=== PATIENT | male | born 1955 | race Caucasian/White ===

== ENCOUNTER → 2021-07-24 08:44 | Outpatient (BNVA) | payer OTHER, SELFPAY | PROVIDERS: Family Provider Family Medicine; PCP Family Medicine; Referring Provider Nurse Practitioner; Visit Provider Specialist | DX: M19.042 Primary osteoarthritis, left hand (principal) | CPT/HCPCS: 73130 ==

== ENCOUNTER 2021-07-24 09:41 | Outpatient (CLI) | payer OTHER, SELFPAY ==
[2021-07-24 11:08] LABS: Alanine Aminotransferase 11 U/L (0-41); Albumin Level 4.2 g/dL (3.5-5.2); Alkaline Phosphatase 98 IU/L (40-130); Anion Gap 15.1 (5-19); Aspartate Amino Transferase 12 U/L (0-40); Blood Urea Nitrogen 7 mg/dL (8-23); C Reactive Protein 7.7 mg/L (0.0-4.9); Calcium 9.2 mg/dL (8.5-10.5); Carbon Dioxide 27 mmol/L (22-29); Chloride 103 mmol/L (98-107); Globulin 2.9 g/dL (1.3-4.6); Glomerular Filtration Rate 97.3 mL/min (90-130); Glucose 91 mg/dL (65-115); Osmolality Calculated 290 mOsm/kg (285-295); Potassium 4.1 mmol/L (3.5-5.1); Sodium 141 mmol/L (136-145); Total Bilirubin 0.3 mg/dL (0.15-1.2); Total Protein 7.1 g/dL (6.6-8.7)
[2021-07-24 12:25] LABS: Erythrocyte Sedimentation Rate 14 mm/hr (0-10)
[2021-07-25 11:22] LABS: THYROID PEROXIDASE ANTIBODIES <1 IU/mL (<9)
[2021-07-25 12:04] LABS: COMPLEMENT COMPONENT C3C 166 mg/dL (82-185); COMPLEMENT COMPONENT C4C 30 mg/dL (15-53)
[2021-07-25 15:08] LABS: Cyclic Citrullinated Peptide <16 UNITS
[2021-07-25 17:07] LABS: CENTROMERE B ANTIBODY <1.0 NEG AI (<1.0 NEG); JO-1 ANTIBODY <1.0 NEG AI (<1.0 NEG); RNP ANTIBODY <1.0 NEG AI (<1.0 NEG); SCL-70 ANTIBODY <1.0 NEG AI (<1.0 NEG); SJOGREN'S ANTIBODY (SS-A) <1.0 NEG AI (<1.0 NEG); SM ANTIBODY <1.0 NEG AI (<1.0 NEG); SS-B <1.0 NEG AI (<1.0 NEG)
[2021-07-26 12:43] LABS: ANA SCREEN, IFA NEGATIVE (NEGATIVE)
[2021-07-26 14:51] LABS: COMPLEMENT, TOTAL (CH50) 34 U/mL (31-60)
[2021-08-02 10:57] LABS: DNA AB (DS) CRITHIDIA,IFA NEGATIVE (NEGATIVE)
== END 2021-07-24 09:42 | disposition home or self-care (01) ==
LOC: LAB 09:47
PROVIDERS: PCP Nurse Practitioner; Visit Provider Specialist
DX: M19.90 Unspecified osteoarthritis, unspecified site (principal)
CPT/HCPCS: 36415; 80053; 85651; 86140; 86160; 86162; 86235; 86255; 86376; 86431

== ENCOUNTER → 2021-09-23 09:46 | Outpatient (BNVA) | payer OTHER, SELFPAY | PROVIDERS: PCP Nurse Practitioner; Visit Provider Internal Medicine | DX: M79.642 Pain in left hand (principal); M65.9 Synovitis and tenosynovitis, unspecified; R79.82 Elevated C-reactive protein (CRP); Z11.59 Encounter for screening for other viral diseases; F17.210 Nicotine dependence, cigarettes, uncomplicated | CPT/HCPCS: 99204 ==

== ENCOUNTER 2021-09-23 11:27 | Outpatient (CLI) | payer OTHER, SELFPAY ==
[2021-09-23 12:59] LABS: Hepatitis B Core AB, Total Non-Reactive (Nonreactive); Hepatitis B Surface Antigen Non-Reactive (Nonreactive); Hepatitis C Virus Antibody Non-Reactive (Nonreactive)
[2021-09-23 13:40] LABS: Ferritin 99 ng/mL (30-400); Iron 105 ug/dL (59-158); Magnesium 2.5 mg/dL (1.7-2.3); Phosphorus 3.2 mg/dL (2.5-4.5); Thyroid Stimulating Hormone 2.99 uIU/mL (0.27-4.20); Uric Acid 4.6 mg/dL (3.4-7.0)
[2021-09-24 16:29] LABS: Erythrocyte Sedimentation Rate 2 mm/hr (0-10)
[2021-09-25 07:28] LABS: Cyclic Citrullinated Peptide <16 UNITS
== END 2021-09-23 11:28 | disposition home or self-care (01) ==
PROVIDERS: PCP Nurse Practitioner; Visit Provider Internal Medicine
DX: R79.82 Elevated C-reactive protein (CRP) (principal); Z11.59 Encounter for screening for other viral diseases; M65.9 Synovitis and tenosynovitis, unspecified; M79.642 Pain in left hand; Z79.899 Other long term (current) drug therapy
CPT/HCPCS: 36415; 82728; 83540; 83735; 84100; 84443; 84550; 85651; 86200; 86704; 86803; 87340

== ENCOUNTER 2021-10-30 15:43 | Outpatient (CLI) | payer OTHER, SELFPAY ==
--- NOTE | 2021-10-30 16:00 | MR_ITS ---
WS: [id number] MRI LEFT HAND without CONTRAST. COMPARISON: LEFT hand radiograph 07/24/2021 Multiplanar, multisequence imaging is performed without contrast. Numerous erosions are noted within the metacarpal heads. Most significant erosions are in the first, second and third metacarpal heads erosions are particular and extra-articular. Additional erosions ar e present within the visualized capitate. There is edema within the second metacarpal head with soft tissue thickening and synovitis. Additional interphalangeal joint space narrowing with no erosions at the interphalangeal joints. Mild osteoarthritis at the CMC joint. No soft tissue mass or fracture. MR/MR hand LT wo con* [id number] IMPRESSION: 1. Erosions noted in the first, second and third metacarpal heads and the capi palacios. Highly suspicious for rheumatoid arthritis. 2. Edema in the second metacarpal head with synovitis at the second metacarpop halangeal joint. 3. Mild osteoarthritis in the interphalangeal joints and the first CMC joint.
== END 2021-10-30 15:44 | disposition home or self-care (01) ==
LOC: RADSHAW 15:51
PROVIDERS: PCP Nurse Practitioner; Visit Provider Internal Medicine
DX: R79.82 Elevated C-reactive protein (CRP) (principal)
CPT/HCPCS: 73218

== ENCOUNTER → 2021-11-28 11:18 | Outpatient (BNVA) | payer OTHER, SELFPAY | PROVIDERS: PCP Nurse Practitioner; Visit Provider Internal Medicine | DX: M06.00 Rheumatoid arthritis without rheumatoid factor, unspecified site (principal); M79.642 Pain in left hand; Z79.899 Other long term (current) drug therapy; M19.042 Primary osteoarthritis, left hand; F17.210 Nicotine dependence, cigarettes, uncomplicated | CPT/HCPCS: 20600; 99214; J1100 ==

== ENCOUNTER → 2022-01-15 09:38 | Outpatient (BNVA) | payer OTHER, SELFPAY | PROVIDERS: PCP Nurse Practitioner; Visit Provider Internal Medicine | DX: M79.642 Pain in left hand (principal); M06.00 Rheumatoid arthritis without rheumatoid factor, unspecified site; Z79.899 Other long term (current) drug therapy; F17.210 Nicotine dependence, cigarettes, uncomplicated | CPT/HCPCS: 99214 ==

== ENCOUNTER 2022-06-20 09:06 | Outpatient (CLI) | payer OTHER, SELFPAY ==
[2022-06-20 09:26] LABS: Erythrocyte Sedimentation Rate 6 mm/hr (0-10)
[2022-06-20 09:28] LABS: Basophils # 0.1 10^3/uL (0.0-0.1); Basophils % 1.5 %; Eosinophils # 0.5 10^3/uL (0.0-0.8); Eosinophils % 6.3 %; Hemoglobin 14.9 g/dL (11.7-16.6); Lymphocytes # 2.7 10^3/uL (0.8-4.8); Lymphocytes % 33.2 %; Mean Corpuscular HGB Conc 35.5 g/dL (30.0-36.0); Mean Corpuscular Hemoglobin 33.4 pg (28.0-34.0); Mean Corpuscular Volume 94.2 fl (80-94); Mean Platelet Volume 9.4 fL (7.4-10.4); Monocytes # 0.6 10^3/uL (0.2-0.9); Monocytes % 7.2 %; Neutrophils # 4.23 10^3/uL (1.8-7.7); Neutrophils % 51.7 %; Nucleated Red Blood Cells % 0 %; Platelet Count 238 10^3/cmm (130-400); Red Blood Count 4.46 10^6/uL (4.1-5.3); White Blood Count 8.2 10^3/uL (4.0-10.0)
[2022-06-20 09:49] LABS: Alanine Aminotransferase 9 U/L (0-41); Albumin Level 4.1 g/dL (3.5-5.2); Alkaline Phosphatase 92 IU/L (40-130); Aspartate Amino Transferase 17 U/L (0-40); Blood Urea Nitrogen 7 mg/dL (8-23); Carbon Dioxide 28 mmol/L (22-29); Chloride 105 mmol/L (98-107); Globulin 2.6 g/dL (1.3-4.6); Glucose 102 mg/dL (65-115); Osmolality Calculated 290 mOsm/kg (285-295); Sodium 141 mmol/L (136-145); Total Bilirubin 0.2 mg/dL (0.15-1.2); Total Protein 6.7 g/dL (6.6-8.7)
[2022-06-20 09:51] LABS: Anion Gap 12.6 (5-19); Potassium 4.6 mmol/L (3.5-5.1)
== END 2022-06-20 09:07 | disposition home or self-care (01) ==
LOC: LAB 09:09
PROVIDERS: PCP Nurse Practitioner; Visit Provider Internal Medicine
DX: M06.00 Rheumatoid arthritis without rheumatoid factor, unspecified site (principal); M19.042 Primary osteoarthritis, left hand; M79.643 Pain in unspecified hand; Z79.899 Other long term (current) drug therapy
CPT/HCPCS: 36415; 80053; 85025; 85651; 86140

== ENCOUNTER → 2022-06-23 09:33 | Outpatient (BNVA) | payer OTHER, SELFPAY | PROVIDERS: PCP Nurse Practitioner; Visit Provider Internal Medicine | DX: M06.00 Rheumatoid arthritis without rheumatoid factor, unspecified site (principal); R79.82 Elevated C-reactive protein (CRP); Z11.1 Encounter for screening for respiratory tuberculosis | CPT/HCPCS: 99214 ==

== ENCOUNTER 2022-12-08 11:38 | Outpatient (CLI) | payer OTHER, SELFPAY ==
--- NOTE | 2022-12-08 12:14 | USCV_ITS ---
Bertram Khanna Age: 67 Gender: M : 1955 Exam Date: 12/08/2022 12:32 Ordering Phys: Nathalia Pascual Technologist: CT Exam Location: [facility] [place] Indication: aaa screening HISTORY: Diameter (cm) AP x Transverse x Length Velocity (cm/s) Waveform Prox Aorta: 2.22 x 2.29 x 80.10 Mid Aorta: 1.87 x 1.87 x 78.40 Distal Aorta: 1.66 x 1.67 x 92.90 Right Iliac Prox: 0.93 x 1.11 x 105.30 Left Iliac Prox: x 0.85 x 140.00 Stent Prox Landing x x Aneurysmal Sac Max x x Lt Lat Sac Dim Rt Lat Sac Dim Stent Dist Landing x x Right Iliac Stent x x Left Iliac Stent x x Right Renal Art Left Renal Art FINDINGS: no aaa CONCLUSIONS No evidence of abdominal aortic or bilateral iliac aneurysm. Minimal arteriovascular disease within the abdominal aorta. Cirilo Greer MD (Electronically Signed) Final Date: 08 December 2022 13:19 S
== END 2022-12-08 11:39 | disposition home or self-care (01) ==
LOC: RAD 11:53
PROVIDERS: PCP Nurse Practitioner; Visit Provider Nurse Practitioner
DX: Z01.89 Encounter for other specified special examinations (principal)
CPT/HCPCS: 76706

== ENCOUNTER 2023-05-18 07:48 | Outpatient (CLI) | payer OTHER, SELFPAY ==
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
== END 2023-05-18 07:49 | disposition home or self-care (01) ==
LOC: RAD 07:50
PROVIDERS: PCP Nurse Practitioner; Visit Provider Nurse Practitioner
DX: Z01.89 Encounter for other specified special examinations (principal); R91.8 Other nonspecific abnormal finding of lung field; I25.10 Atherosclerotic heart disease of native coronary artery without angina pectoris; N28.1 Cyst of kidney, acquired
CPT/HCPCS: 71250

== ENCOUNTER → 2023-06-30 14:20 | Outpatient (BNVA) | payer OTHER, SELFPAY | PROVIDERS: PCP Nurse Practitioner; Visit Provider Internal Medicine Pulmonary Disease | DX: R06.02 Shortness of breath (principal); M06.00 Rheumatoid arthritis without rheumatoid factor, unspecified site; I25.10 Atherosclerotic heart disease of native coronary artery without angina pectoris; F17.210 Nicotine dependence, cigarettes, uncomplicated | CPT/HCPCS: 99204 ==

== ENCOUNTER → 2023-07-09 14:42 | Outpatient (BNVA) | payer OTHER, SELFPAY | PROVIDERS: PCP Nurse Practitioner; Visit Provider Internal Medicine | DX: R07.9 Chest pain, unspecified (principal); I45.10 Unspecified right bundle-branch block; I25.10 Atherosclerotic heart disease of native coronary artery without angina pectoris; R06.02 Shortness of breath; F17.210 Nicotine dependence, cigarettes, uncomplicated | CPT/HCPCS: 93005; 99204 ==

== ENCOUNTER 2023-07-22 07:31 | Outpatient (CLI) | payer OTHER, SELFPAY ==
--- NOTE | 2023-07-22 07:30 | USCV_ITS ---
Bertram Khanna Age: 68 Gender: M : 1955 Exam Date: 07/22/2023 07:43 Ordering Phys: Donavon Hannah M.D ([email or web address]) Technologist: Isidoro Delvalle Exam Location: [facility] Indication: chest pain BP: 120 / 72 HR: 59 Rhythm: Sinus Technical Quality: Adequate MEASUREMENTS (Male / Female) Normal Values 2D ECHO LV Diastolic Diameter PLAX 3.8 cm 4.2 - 5.9 / 3.9 - 5.3 cm LV Systolic Diameter PLAX 2.7 cm IVS Diastolic Thickness 1.3 cm 0.6 - 1.0 / 0.6 - 0.9 cm IVS Systolic Thickness 1.6 cm LVPW Diastolic Thickness 1.2 cm 0.6 - 1.0 / 0.6 - 0.9 cm LVPW Systolic Thickness 1.6 cm LVOT Diameter 2.0 cm LV Ejection Fraction 2D Teich 55.9 % LV Ejection Fraction MOD 2C 69.5 % LV Ejection Fraction 2C AL 69.1 % LA Diameter 3.9 cm Aorta at Sinotubular Diameter 2.4 cm IVC Diameter 1.5 cm M-MODE Aortic Annulus Diameter 3.7 cm LA Ao Ratio MM 1.1 MV E Point Septal Separation 0.5 cm DOPPLER AV Peak Velocity 145.0 cm/s LVOT Peak Velocity 104.0 cm/s AV Area Cont Eq vti 2.6 cm squared AV Area Cont Eq pk 2.3 cm squared MV Area PHT 5.0 cm squared Mitral E to A Ratio 0.9 MV E' Velocity 51.0 cm/s Mitral E to MV E' Ratio 12.3 Mitral E to LV E' Lateral Ratio 9.9 Mitral E to LV E' Septal Ratio 16.4 TR Peak Velocity 157.3 cm/s TR Peak Gradient 9.9 mmHg TV Peak E Velocity 118.0 cm/s Right Atrial Pressure 3.0 mmHg Pulmonary Artery Systolic Pressu 12.9 mmHg RV Acceleration Time 0.1 s FINDINGS Left Ventricle Left ventricle is normal in size. LV systolic function is normal with EF of 55-60%. No regional wall motion abnormalities are seen. Grade 1 diastolic dysfunction Right Ventricle Normal in size and function Right Atrium Normal in size Left Atrium Normal in size Mitral Valve Structurally normal mitral valve. Mild mitral regurgitation. Aortic Valve Structurally normal aortic valve. No significant stenosis or regurgitation. Tricuspid Valve Mild tricuspid regurgitation. Insufficient TR jet to calculate RVSP. Pulmonic Valve Not well visualized Pericardium Normal Aorta Normal in size IVC Appears to be normal. CONCLUSIONS LV systolic function is normal with EF 55 to 60%. Grade 1 diastolic dysfunction Mild mitral regurgitation Mild tricuspid regurgitation No comparison studies are available. Donavon Hannah MD (Electronically Signed) Final Date: 07 August 2023 14:57 S
== END 2023-07-22 07:32 | disposition home or self-care (01) ==
PROVIDERS: PCP Nurse Practitioner; Visit Provider Internal Medicine
DX: I08.1 Rheumatic disorders of both mitral and tricuspid valves (principal); R07.9 Chest pain, unspecified; R06.02 Shortness of breath
CPT/HCPCS: 93306

== ENCOUNTER 2023-07-23 08:53 | Outpatient (CLI) | payer OTHER, SELFPAY ==
[2023-07-23 09:42] VITALS: PULSE 62; RESP 18; O2SAT 97
[2023-07-23] MEDS: albuterol 2.5 mg/3 mL Neb INHALATION (09:42)
[2023-07-23 09:46] VITALS: PULSE 60
== END 2023-07-23 08:54 | disposition home or self-care (01) ==
LOC: RT 08:56
PROVIDERS: PCP Nurse Practitioner; Visit Provider Internal Medicine Pulmonary Disease
DX: R06.02 Shortness of breath (principal); F17.210 Nicotine dependence, cigarettes, uncomplicated; R94.2 Abnormal results of pulmonary function studies
CPT/HCPCS: 94060; 94618; 94726; 94729; J7613

== ENCOUNTER 2023-07-29 08:54 | Outpatient (CLI) | payer OTHER, SELFPAY ==
--- NOTE | 2023-07-29 | ECG_ITS ---
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 Interpretive Statements NAME OF STUDY: LEXISCAN SESTAMIBI STRESS TEST INDICATION: [Chest Pain; Shortness of Breath, ] Procedure: At the baseline, the blood pressure was 135/75 mmHg with a heart rate of 69 bpm. The electrocardiogram showed normal sinus rhythm, normal axis with normal ST and T's. The Lexiscan was infused over a period of 20 seconds. A total of 0.4 mg of Lexiscan was infused. The stress phase was continued for a total of 5 minutes. Heart rate was at the end of stress phase was 85 bpm and a blood pressure of 142/71 mmHg. The EKG at the peak infusion revealed normal sinus rhythm with no significant ST-T wave changes. Sestamibi was injected 20 seconds after the Lexiscan infusion. Blood pressure at the end of recovery phase was 140/75 mmHg with a heart rate of 77 bpm. Conclusion: 1. Normal EKG response to Lexiscan infusion 2. No Lexiscan induced chest pain or cardiac arrhythmia. 3. Normal blood pressure and heart rate response. 4. Sestamibi/sestamibi perfusion scan pending; see separate report. Electronically Signed On 08-13-2023 14:12:56 CDT by Donavon Hannah M.D. [email or web address]
[2023-07-29 09:08] VITALS: BMI 32.3
--- NOTE | 2023-07-29 09:08 | NMCV_ITS ---
NM anyi perf SPECT r/s* [id number] Bertram Khanna Age: 68 Gender: M : 1955 Exam Date: 07/29/2023 09:57 Ordering Phys: Donavon Hannah M.D ([email or web address]) Technologist: ANDI Hagen Exam Location: [facility] Indications: CHEST PAIN STRESS TEST Please see separate stress test report in [facility] for full findings IMAGE PROTOCOL Rest/Stress 1 Lexiscan Day Radiopharmaceutical Dose (mCi) Administration Site Administered by Rest: Tc-99m 10.5 IV ANDI Hoffman Sestamibi Stress:Tc-99m 32.9 IV ANDI Hoffman Sestamibi Rest: 29-Jul-2023 60 Discovery 630 Stress: 29-Jul-2023 30 Discovery 630 0.4mg Lexiscan. Images obtained in supine and prone position. SPECT RESULTS Technical Quality: Excellent Raw Data Analysis: Normal Image Corrections: No attenuation or motion correction applied Summed Stress Score: 4 Summed Rest Score: 9 Summed Difference Score: 0 PERFUSION FINDINGS There is a small to medium sized, fixed perfusion defect noted in the inferior and inferolateral paez. 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 FUNCTIONAL RESULTS (calculated via Gated SPECT) Stress Image LV EF (%): 69 Stress EDV (mL):108 TID: 1.07 Stress ESV (mL):33 FUNCTIONAL FINDINGS: There is normal left ventricular systolic function. IMPRESSIONS 1. Abnormal myocardial perfusion imaging with the small to medium sized areas of prior infarct noted in the RCA and left circumflex artery territories. No evidence of ischemia 2. LV systolic function is normal Donavon Hannah MD (Electronically Signed) Final Date: 03 August 2023 11:19 S
[2023-07-29] MEDS: regadenoson 0.4 Mg/5 ml Syringe IVP (10:31)
[2023-07-29 10:53] VITALS: BP 140/75; PULSE 80
== END 2023-07-29 08:55 | disposition home or self-care (01) ==
LOC: CDL 08:55
PROVIDERS: PCP Nurse Practitioner; Visit Provider Internal Medicine
DX: R07.9 Chest pain, unspecified (principal); R06.02 Shortness of breath
CPT/HCPCS: 36415; 78452; 93017; 96374; A9500; J2785

== ENCOUNTER → 2023-09-08 13:55 | Outpatient (BNVA) | payer OTHER, SELFPAY | PROVIDERS: PCP Nurse Practitioner; Visit Provider Internal Medicine | DX: I25.10 Atherosclerotic heart disease of native coronary artery without angina pectoris (principal); R06.02 Shortness of breath; F17.210 Nicotine dependence, cigarettes, uncomplicated | CPT/HCPCS: 99214 ==

== ENCOUNTER → 2023-10-01 07:59 | Outpatient (BNVA) | payer OTHER, SELFPAY | PROVIDERS: PCP Nurse Practitioner; Visit Provider Internal Medicine Pulmonary Disease | DX: J44.9 Chronic obstructive pulmonary disease, unspecified (principal); M06.00 Rheumatoid arthritis without rheumatoid factor, unspecified site; I25.10 Atherosclerotic heart disease of native coronary artery without angina pectoris; F17.210 Nicotine dependence, cigarettes, uncomplicated | CPT/HCPCS: 99214 ==

== ENCOUNTER 2023-10-19 09:48 | Outpatient (CLI) | payer OTHER, SELFPAY ==
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
== END 2023-10-19 09:49 | disposition home or self-care (01) ==
LOC: RAD 09:48
PROVIDERS: PCP Nurse Practitioner; Visit Provider Nurse Practitioner
DX: R22.2 Localized swelling, mass and lump, trunk (principal)
CPT/HCPCS: 71250

== ENCOUNTER → 2023-10-29 08:02 | Outpatient (BNVA) | payer OTHER, SELFPAY | PROVIDERS: PCP Nurse Practitioner; Visit Provider Podiatrist Foot & Ankle Surgery | DX: Q82.8 Other specified congenital malformations of skin (principal); M77.42 Metatarsalgia, left foot | CPT/HCPCS: 17110; 99203 ==

== ENCOUNTER → 2023-11-12 08:02 | Outpatient (BNVA) | payer OTHER, SELFPAY | PROVIDERS: PCP Nurse Practitioner; Visit Provider Podiatrist Foot & Ankle Surgery | DX: Q82.8 Other specified congenital malformations of skin (principal); M77.42 Metatarsalgia, left foot | CPT/HCPCS: 99213 ==

== ENCOUNTER 2023-12-11 12:09 | Outpatient (CLI) | payer OTHER, SELFPAY ==
--- NOTE | 2023-12-11 12:30 | CT_ITS ---
WS: [id number] CT chest wo con [id number] HISTORY: to ensure no progression TECHNIQUE: Axial imaging performed through the thorax. Coronal and sagittal reformats are submitted. All CT [email or web address] use at least one of these dose optimization techniques: automated exposure control; mA and/or kV adjustment per patient size (includes targeted exams where dose is mat ched to clinical indication); or iterative reconstruction. CONTRAST: None DLP: 1313.95 mGy.cm COMPARISON: 10/19/2023 Lungs and central airway: Chronic centrilobular emphysema. Bilateral multi lobar mild reticular nodul ar changes throughout both lungs. These are predominately along the pleural surfaces. Greater through out the RIGHT lung than the LEFT. Not significantly changed or progressed since 10/19/2023. No progres alfredito. No mass or nodule. No pneumonia. Pleura: Normal. No pleural effusion. Heart and pericardium: Normal size heart with no pericardial effusion. Mediastinum and patrizia: No mediastinum or hilar adenopathy. Vessels: Mild atherosclerosis aorta. No aneurysm. Normal size pulmonary artery. Chest wall and lower neck: No soft tissue masses. Upper abdomen: Mild heterogeneity throughout the liver. No mass identified. No adrenal mass. Renal cy st upper pole measures 3.2 cm. Osseous structures: Reidentified are the small metallic fragments associated with the T8-9 level whic h may be from prior spine surgery. IMPRESSION: 1. Mild interstitial reticular nodular thickening along the pleura of both lungs is similar to the p rior study with no obvious progression. 2. No pneumonia or consolidation. 3. No adenopathy. 4. RIGHT renal cyst.
== END 2023-12-11 12:10 | disposition home or self-care (01) ==
LOC: RAD 12:10
PROVIDERS: PCP Nurse Practitioner; Visit Provider Internal Medicine Pulmonary Disease
DX: J98.4 Other disorders of lung (principal)
CPT/HCPCS: 71250

== ENCOUNTER → 2023-12-17 07:44 | Outpatient (BNVA) | payer OTHER, SELFPAY | PROVIDERS: PCP Nurse Practitioner; Visit Provider Podiatrist Foot & Ankle Surgery | DX: Q82.8 Other specified congenital malformations of skin (principal); M77.42 Metatarsalgia, left foot | CPT/HCPCS: 99213 ==

== ENCOUNTER → 2024-01-19 08:36 | Outpatient (BNVA) | payer OTHER, SELFPAY | PROVIDERS: PCP Nurse Practitioner; Visit Provider Podiatrist Foot & Ankle Surgery | DX: Q82.8 Other specified congenital malformations of skin; M77.42 Metatarsalgia, left foot | CPT/HCPCS: 17110 ==

== ENCOUNTER → 2024-02-02 08:58 | Outpatient (BNVA) | payer OTHER, SELFPAY | PROVIDERS: PCP Nurse Practitioner; Visit Provider Podiatrist Foot & Ankle Surgery | DX: Q82.8 Other specified congenital malformations of skin (principal); M77.42 Metatarsalgia, left foot | CPT/HCPCS: 99213 ==

== ENCOUNTER → 2024-03-01 07:53 | Outpatient (BNVA) | payer OTHER, SELFPAY | PROVIDERS: PCP Nurse Practitioner; Visit Provider Podiatrist Foot & Ankle Surgery | DX: Q82.8 Other specified congenital malformations of skin (principal); M77.42 Metatarsalgia, left foot | CPT/HCPCS: 99214 ==

== ENCOUNTER → 2024-03-31 08:21 | Outpatient (BNVA) | payer OTHER, SELFPAY | PROVIDERS: PCP Nurse Practitioner; Visit Provider Internal Medicine Pulmonary Disease | DX: J44.9 Chronic obstructive pulmonary disease, unspecified (principal); M06.00 Rheumatoid arthritis without rheumatoid factor, unspecified site; F17.200 Nicotine dependence, unspecified, uncomplicated; I25.10 Atherosclerotic heart disease of native coronary artery without angina pectoris | CPT/HCPCS: 99214 ==

== ENCOUNTER 2024-04-01 07:37 | Outpatient (CLI) | payer OTHER, SELFPAY ==
--- NOTE | 2024-04-01 07:42 | USCV_ITS ---
ErinchristaBertram Age: 68 Gender: M : 1955 Exam Date: 04/01/2024 07:55 Ordering Phys: Nathalia Pascual Technologist: Raman Thomas Exam Location: [facility] [place] Indication: screening HISTORY: Diameter (cm) AP x Transverse x Length Velocity (cm/s) Waveform Prox Aorta: 2.18 x 1.96 x 50.60 Mid Aorta: 1.94 x 2.03 x 72.60 Distal Aorta: 1.28 x 1.89 x 77.40 Right Iliac Prox: 1.09 x 0.95 x 78.50 Left Iliac Prox: 1.04 x 0.84 x 102.40 Stent Prox Landing x x Aneurysmal Sac Max x x Lt Lat Sac Dim Rt Lat Sac Dim Stent Dist Landing x x Right Iliac Stent x x Left Iliac Stent x x Right Renal Art Left Renal Art FINDINGS: CONCLUSIONS No evidence of abdominal aortic or bilateral iliac aneurysm. Mild atheromatous disease Cirilo Greer MD (Electronically Signed) Final Date: 01 Apr 2024 10:39 S
== END 2024-04-01 07:38 | disposition home or self-care (01) ==
LOC: RAD 07:37
PROVIDERS: PCP Nurse Practitioner; Visit Provider Nurse Practitioner
DX: Z01.89 Encounter for other specified special examinations (principal)
CPT/HCPCS: 76706

== ENCOUNTER 2024-04-13 06:26 | Day surgery (SDC) | payer OTHER, SELFPAY ==
[2024-04-13] VITALS (9 sets, daily range): BP systolic 121–141; BP diastolic 66–82; PULSE 54–66; RESP 14–18; TEMP 36.4; O2SAT 93–95; BMI 33.5
--- NOTE | 2024-04-13 | XR_ITS ---
WS: [id number] Exam: XR foot LT min 3V* [id number] Date/Time of Exam: 04/13/2024 12:00 AM Reason For Exam: EUSEBIO PICS Single AP image of the LEFT forefoot is submitted. The images obtained for positioning purposes.
[2024-04-13] MEDS: sodium chloride 0.9% 1,000 ML 30 ML IV (07:03)
[2024-04-13] MEDS: gabapentin 300 mg Capsule PO (07:03)
[2024-04-13] MEDS: acetaminophen 1,000 MG/100 ML PIGGYBACK 400 MG IV (07:04)
--- NOTE | 2024-04-13 07:10 | ANES.PREANE2 ---
Pre-Anesthetic Assessment Height/Weight: Height 1.8 m Weight 108.862 kg O2 Del Method Room Air 04/13/24 06:46 Preop Diagnosis: Left foot 2nd digit hammertoe Operation Date: 04/13/24 08:05 Proposed Procedures p Foot Proximal Interphalangeal Joint Left foot second toe proximal interphalageal joint fusion(Left) - Angel Cano DPM s Morteza Osteotomy/Left 2nd metatarsal morteza osteotomy(Left) - Angel Cano DPM s Tendon Transfer Foot Flexor Digitorum Longus To Extensor Digitorum Longus Tendon Transfer(Left) - Angel Cano DPM Familial anesthetic complications: none Was Beta Mario taken within 24 hours: N/A Was Clonidine taken within 24 hours: N/A Last intake: Intake Last Liquid Date 04/12/24 Last Liquid Time 18:30 Last Solid Date 04/12/24 Last Solid Time 18:00 Social No alcohol and No tobacco Exam alert, oriented x 3, clear to auscultation bilaterally and regular rate & rhythm Airway Mallampati: Class II Dentition: other (partials) Pulmonary Chronic Obstructive Pulmonary Disease CV/HEM Hypertension CT imaging w/ LAD lesion, but negative stress test [facility] Rheumatoid Arthritis Anesthetic Plan ASA status: 3 Anesthesia: MAC Risk of > 500 ml blood loss (7ml/kg in children): No Medications/Allergies Home Medications Medication Instructions Recorded Confirmed Last Taken Type amlodipine 10 mg tablet 10 mg PO DAILY 07/24/21 04/13/24 04/13/24 History buspirone 10 mg tablet 10 mg PO BID 07/24/21 04/13/24 04/13/24 History lisinopril 40 mg tablet 40 mg PO DAILY 07/24/21 04/12/24 04/12/24 History metoprolol tartrate 100 mg tablet 50 mg PO BID 07/24/21 04/13/24 04/13/24 History omeprazole 20 mg capsule,delayed 20 mg PO BID 07/24/21 04/13/24 04/13/24 History release trazodone 100 mg tablet 100 mg PO DAILY 07/24/21 04/12/24 04/11/24 History venlafaxine 150 mg tablet,extended 150 mg PO DAILY 07/24/21 04/13/24 04/13/24 History release 24 hr rosuvastatin 5 mg tablet 5 mg PO DAILY 08/14/21 04/12/24 04/11/24 History custom arch supports L3010 #1 ea 10/29/23 03/31/24 Unknown Rx urea 40 % topical cream See Rx Instructions .Route 12/10/23 04/12/24 03/15/24 Rx .COMPLEX #28.35 grams fluorouracil 5 % topical cream 1 applic topical BID 4 weeks #40 12/17/23 04/12/24 04/10/24 Rx (Efudex) grams cyanocobalamin (vitamin B-12) 1,000 mcg .Route .monthy 03/31/24 04/12/24 03/22/24 History 1,000 mcg/mL injection syringe glycopyrrolate 9 mcg-formoterol 2 puff inhalation BID #10.7 grams 03/31/24 04/12/24 Unknown Rx 4.8 mcg HFA aerosol inhaler (Bevespi Aerosphere) Allergies Allergy/AdvReac Type Severity Reaction Status Date / Time citalopram [From Celexa] Allergy Unknown unknown Verified 03/31/24 08:51 iodine Allergy Unknown unknown Verified 03/31/24 08:51 Penicillins Allergy Unknown unknown Verified 04/12/24 12:53 simvastatin Allergy Unknown unknown Verified 03/31/24 08:51 Current Medications Generic Name Dose Route Start Last Admin Trade Name Freq PRN Reason Stop Dose Admin Sodium Chloride 1,000 mls @ 30 mls/hr 04/13/24 06:45 04/13/24 07:03 Sodium Chloride 0.9% IV 04/14/24 06:44 30 mls/hr .Q24H TOSHIA Administration PFSH Anesthesia Family History Mother Lung disease Social History Smoking and tobacco/nicotine status: current every day tobacco/nicotine user cigarettes Packs smoked per day: 1 Years cigarettes smoked: 35 Second hand smoke exposure: Yes Alcohol intake: current Alcohol intake frequency: holidays/special occasions only Data Anesthesia Cardiac Studies: Echocardiogram 07/22/23 Sestamibi Stress Test (Cardiology) 07/29/23
--- NOTE | 2024-04-13 07:59 | P.HPUD_ITS ---
Surgery/Procedure H&P Update DATE OF PROCEDURE: April 13, 2024 DATE H&P PERFORMED: 03/01/24 H&P UPDATE INFORMATION: I have reviewed H&P completed within last 30 days, I have examined patient prior to procedure, No changes to prior documentation and [place] [facility] date indicated PREOP DIAGNOSIS: Left foot 2nd digit hammertoe PLANNED PROCEDURE: Operation Date: 04/13/24 08:05 Proposed Procedures p Foot Proximal Interphalangeal Joint Left foot second toe proximal interphalageal joint fusion(Left) - Angel Cano DPM s Sony Osteotomy/Left 2nd metatarsal sony osteotomy(Left) - Angel Cano DPM s Tendon Transfer Foot Flexor Digitorum Longus To Extensor Digitorum Longus Tendon Transfer(Left) - Angel Cano DPM
[2024-04-13] MEDS: vancomycin 1,000 MG in sodium chloride 0.9% 250 ML 250 MG IV (08:11)
[2024-04-13] MEDS: BUPivacaine 0.5% INJ 30 mL INJECTION (08:32)
--- NOTE | 2024-04-13 09:14 | W.PM.BPON ---
Date of procedure: 04/13/2024 Surgeon name: Marybeth AllredPFaisal Oil Gas And Pipe Tester(s) name(s): Tae Procedure(s) performed: Left foot second hammertoe repair, PIPJ arthrodesis, flexor to extensor tendon transfer, Sony osteotomy Description of findings: Left foot second hammertoe Estimated blood loss: 3 cc Tourniquet time: 36 minutes Specimen(s) removed: None Post-operative diagnosis: Left foot secondary to hammertoe
--- NOTE | 2024-04-13 10:30 | ANE.PACU2 ---
Inpatient post-anesthesia follow up: Airway intact: Yes Vital signs: Temperature 97.5 F Pulse Rate 54 Respiratory Rate 17 Blood Pressure 141/73 Pulse Oximetry 95 Oxygen Delivery Me thod Room Air Oxygen Flow Rate Fraction of Inspir ed Oxygen Hydration adequate: Yes Nausea and vomiting: No Pain level: 1 Mental status: Baseline
--- NOTE | 2024-04-13 20:31 | P.OP_ITS ---
Operative Report Date of procedure: April 13, 2024 Pre-op diagnosis: Left foot hammertoe Post-op diagnosis: Same Post-op findings: Elongated second metatarsal, hammertoe deformity Procedure done: 1. Left foot second digit proximal interphalangeal joint arthrodesis CPT 34260 2. Second metatarsal Sony osteotomy CPT 38012 3. Flexor digitorum longus to extensor digitorum longus tendon transfer CPT 21984 Implants: 2.0 snap off screw from [employer], 0.045 K wire Surgeon: Angel Cano DPM Speech Communication Instructor: Tae Estimated blood loss: 3 cc 36 minutes Complications: None Findings: See above Procedure: Patient is a 68-year-old male that has a history of left foot second digit hammertoe and metatarsalgia. The patient has had the aforementioned chief complaint for some time. Conservative treatment measures have been attempted and the patient has opted for surgical intervention at this time. A lengthy discussion regarding the procedure, including risks and complications has been had with the patient and is noted in the recent clinic note. Written and verbal consent have been obtained. All patient questions have been answered to the patient?s satisfaction. No written or verbal guarantees have been given or implied. The patient has been NPO since midnight. The history has been reviewed and the history and physical is current. The signed consent was confirmed and placed in the patient chart. Patient imaging has been reviewed and is consistent with the diagnosis. Under mild sedation, the patient was brought into the operating room and placed on the table in the supine position. IV antibiotics were given by the anesthesia team as preoperative surgical prophylaxis. IV sedation was then performed by the anesthesiateam. A local field block was performed using 0.5% M arcaine plain. A pneumatic tourniquet was then placed about the left ankle. The operative extremity was then prepped and draped in the usual fashion. The extremity was then elevated and exsanguinated before the tourniquet was inflated to 250mmHg. After inflation, the following procedure was then performed. Attention was directed to the left second digit where a 2.5 cm linear incision was made over the proximal interphalangeal joint using a #15 blade. Dissection was carried down through subcutaneous and superficial fascia to the level of the extensor digitorum longus tendon which was cut in a Z-lengthening fashion using a #15 blade. After transection of the tendon and proximal interphalangeal joint capsule of the proximal interphalangeal joint was clearly visualized. The medial and lateral collateral ligaments of the joint were released using a #15 blade. The entirety of the proximal interphalangeal joint was then visualized. A sagittal bone saw was then used to remove the articular condyles from the head of the proximal phalanx. These were passed from the operative field. A rongeur was then used to remove the articular cartilage from the base of the intermediate phalanx in preparation for arthrodesis. The site was then irrigated with copious amounts sterile saline. Attention was then directed to the second metatarsal phalangeal joint. Dissection was carried out to expose the head of the second metatarsal. Once exposed, sagittal bone saw was used to perform a Sony osteotomy in standard fashion. The head of the metatarsal was translated proximally before being fixated with a 2.0 snap off screw from [employer]. Good positioning of the screw was noted clinically as well as on C-arm imaging. Dissection was then carried into the plantar tissues where the long flexor tendon to the second digit was identified. It was then transected as distally as possible before being split longitudinally and wraparound to the dorsum of the proximal phalanx. A 0.045 K wire was then driven into the base of the intermediate phalanx and out the distal aspect of the toe before being driven in retrograde fashion back into the proximal phalanx and then across the metatarsal phalangeal joint into the head of the metatarsal. Good positioning of the wire and arthrodesis site was noted on C-arm imaging. The flexor tendons were then repaired on the dorsum of the proximal phalanx using 2-0 FiberWire. The extensor tendon was then repaired and sutured into the flexor tendon. The site was irrigated again with copious months sterile saline. Attention was directed to closure. Skin was closed with 4-0 nylon in horizontal mattress fashion. The tourniquet was let down and good hyperemic response was noted to all digits of the operative extremity. Hemostasis was n oted to be achieved. The wire was capped at the exit point of the second digit. Incision site was dressed with Xeroform, 4 x 4 gauze, Kerlix, Giovayn. Patient was placed in a cam boot. The patient tolerated the procedure and anesthesia well and without complication. The patient was transported from the operating room to the recovery room with vital signs stable and vascular status intact to all digits of the left foot. The patient was given both written and verbal instructions to remain weightbearing as tolerated in cam boot to the operative extremity, to keep dressings/splint clean, dry and intact and to take pain medication as directed. The patient will follow-up in the outpatient setting at their scheduled appointment. The patient was discharged with my personal number and was instructed to call if any questions or issues should arise. They were discharged home once anesthesia criteria was met.
== END 2024-04-13 10:30 | disposition home or self-care (01) ==
PROVIDERS: PCP Nurse Practitioner; Visit Provider Podiatrist Foot & Ankle Surgery
PROC: (CPT 28740; principal; 2024-04-13 07:55)
PROC: (CPT 28308; 2024-04-13 07:55)
PROC: (CPT 27690; 2024-04-13 07:55)
DX: M20.42 Other hammer toe(s) (acquired), left foot (principal); M77.42 Metatarsalgia, left foot; M79.672 Pain in left foot; Q82.8 Other specified congenital malformations of skin; J44.9 Chronic obstructive pulmonary disease, unspecified; I10 Essential (primary) hypertension; M06.9 Rheumatoid arthritis, unspecified; F17.210 Nicotine dependence, cigarettes, uncomplicated; Z91.81 History of falling; F17.200 Nicotine dependence, unspecified, uncomplicated
CPT/HCPCS: 27690; 28285; 28308; 73630; 76000; C1713; J0131; J2704; J3010; J3370; J3490; J7030; J7050

== ENCOUNTER → 2024-04-14 11:10 | Outpatient (BNVA) | payer OTHER, SELFPAY | PROVIDERS: PCP Nurse Practitioner; Visit Provider Podiatrist Foot & Ankle Surgery | DX: Z98.890 Other specified postprocedural states (principal) | CPT/HCPCS: 99024; A6219; A6222 ==

== ENCOUNTER → 2024-04-27 12:50 | Outpatient (BNVA) | payer OTHER, SELFPAY | PROVIDERS: PCP Nurse Practitioner; Visit Provider Podiatrist Foot & Ankle Surgery | DX: M79.672 Pain in left foot (principal); Z98.890 Other specified postprocedural states | CPT/HCPCS: 73630; 99024 ==

== ENCOUNTER → 2024-05-13 07:59 | Outpatient (BNVA) | payer OTHER, SELFPAY | PROVIDERS: PCP Nurse Practitioner; Visit Provider Podiatrist Foot & Ankle Surgery | DX: M79.672 Pain in left foot (principal); Z98.890 Other specified postprocedural states | CPT/HCPCS: 73630; 99024 ==

== ENCOUNTER → 2024-07-06 09:52 | Outpatient (BNVA) | payer OTHER, SELFPAY | PROVIDERS: PCP Nurse Practitioner; Visit Provider Specialist | DX: M19.042 Primary osteoarthritis, left hand (principal) | CPT/HCPCS: 73130 ==

== ENCOUNTER → 2024-07-13 09:16 | Outpatient (BNVA) | payer OTHER, SELFPAY | PROVIDERS: PCP Nurse Practitioner; Visit Provider Specialist | DX: M65.312 Trigger thumb, left thumb (principal) | CPT/HCPCS: 36415; 80053; 81003; 81015; 85025; 99204 ==

== ENCOUNTER → 2024-07-15 10:27 | Outpatient (BNVA) | payer OTHER, SELFPAY | PROVIDERS: PCP Nurse Practitioner; Visit Provider Family Medicine | DX: Z01.818 Encounter for other preprocedural examination (principal); I45.10 Unspecified right bundle-branch block; I49.8 Other specified cardiac arrhythmias | CPT/HCPCS: 93005 ==

== ENCOUNTER 2024-07-19 05:55 | Day surgery (SDC) | payer OTHER, SELFPAY ==
[2024-07-19] VITALS (11 sets, daily range): BP systolic 94–157; BP diastolic 60–82; PULSE 62–77; RESP 14–17; TEMP 36.3–36.6; O2SAT 95–100; BMI 33.7
[2024-07-19] MEDS: acetaminophen 1,000 MG/100 ML PIGGYBACK 400 MG IV (06:28)
[2024-07-19] MEDS: CELEcoxib 200 mg Capsule 400 MG PO (06:36)
--- NOTE | 2024-07-19 06:36 | ANES.PREANE2 ---
Pre-Anesthetic Assessment Height/Weight: Height 5 ft 11 in Weight 242 lb Temp Pulse Resp BP Pulse Ox O2 Del Method 97.4 F L 75 17 157/82 98 Room Air 07/19/24 06:13 07/19/24 06:13 07/19/24 06:13 07/19/24 06:13 07/19/24 06:13 07/19/24 06:13 Operation Date: 07/19/24 07:00 Proposed Procedures p Trigger Finger Release(Left) - Jenise Villafuerte MD Last intake: Intake Last Liquid Date 07/18/24 Last Liquid Time 19:00 Last Solid Date 07/18/24 Last Solid Time 17:00 Social Tobacco and No alcohol Exam alert, oriented x 3, clear to auscultation bilaterally and regular rate & rhythm Airway Submandibular: within normal limits Cervical ROM: within normal limits Mallampati: Class III Comments: Comments: few missing teeth Anesthetic Plan ASA status: 3 Anesthesia: General Other: No prior issues with anesthesia, foot procedure 6 weeks ago without issues NPO since midnight Hypertension, on amlodipine lisinopril and metoprolol. Preop BP 157/82 Labs reviewed and acceptable for surgery Current smoker, COPD. Does not use his inhalers as prescribed Echo 2022 showing EF 55 to 60% EKG showing RBBB Plan for GA with LMA Medications/Allergies Home Medications Medication Instructions Recorded Confirmed Last Taken Type amlodipine 10 mg tablet 10 mg PO DAILY 07/24/21 07/19/24 07/18/24 History buspirone 10 mg tablet 10 mg PO BID 07/24/21 07/19/24 07/19/24 History metoprolol tartrate 100 mg tablet 50 mg PO BID 07/24/21 07/19/24 07/19/24 History omeprazole 20 mg capsule,delayed 20 mg PO BID 07/24/21 07/19/24 07/19/24 History release trazodone 100 mg tablet 100 mg PO DAILY 07/24/21 07/19/24 07/18/24 History venlafaxine 150 mg tablet,extended 150 mg PO DAILY 07/24/21 07/19/24 07/19/24 History release 24 hr rosuvastatin 5 mg tablet 5 mg PO DAILY 08/14/21 07/19/24 07/18/24 History custom arch supports L3010 #1 ea 10/29/23 07/13/24 Unknown Rx urea 40 % topical cream See Rx Instructions .Route 12/10/23 07/15/24 03/15/24 Rx .COMPLEX #28.35 grams cyanocobalamin (vitamin B-12) 1,000 mcg PO DAILY 07/15/24 07/19/24 07/18/24 History 1,000 mcg tablet (Vitamin B-12) lisinopril 40 mg tablet 20 mg PO DAILY 07/15/24 07/19/24 07/18/24 History Allergies Allergy/AdvReac Type Severity Reaction Status Date / Time citalopram [From Celexa] Allergy Unknown unknown Verified 07/15/24 10:53 iodine Allergy Unknown unknown Verified 07/15/24 10:53 Penicillins Allergy Unknown unknown Verified 07/15/24 10:53 simvastatin Allergy Unknown unknown Verified 07/15/24 10:53 PFSH Anesthesia Family History Mother Lung disease Social History Smoking and tobacco/nicotine status: current every day tobacco/nicotine user cigarettes Packs smoked per day: 1 Years cigarettes smoked: 35 Second hand smoke exposure: Yes Alcohol intake: current Alcohol intake frequency: holidays/special occasions only Data Anesthesia Cardiac Studies: Echocardiogram 07/22/23 Sestamibi Stress Test (Cardiology) 07/29/23
[2024-07-19] MEDS: gabapentin 300 mg Capsule PO (06:37)
[2024-07-19] MEDS: sodium chloride 0.9% 1,000 ML 30 ML IV (06:47)
--- NOTE | 2024-07-19 06:58 | P.HPUD_ITS ---
Surgery/Procedure H&P Update DATE OF PROCEDURE: July 19, 2024 DATE H&P PERFORMED: 07/15/24 H&P UPDATE INFORMATION: I have reviewed H&P completed within last 30 days, I have examined patient prior to procedure, No changes to prior documentation and H&P is in [facility] EMR on date indicated PLANNED PROCEDURE: Operation Date: 07/19/24 07:00 Proposed Procedures p Trigger Finger Release(Left) - Jenise Villafuerte MD
[2024-07-19] MEDS: BUPivacaine 0.5% INJ 30 mL INJECTION (07:20)
[2024-07-19] MEDS: ceFAZolin 2,000 mg SDV 2000 MG IVP (07:22)
--- NOTE | 2024-07-19 07:51 | P.OP_ITS ---
Operative Report Date of procedure: July 19, 2024 Pre-op diagnosis: Left trigger thumb Post-op diagnosis: Left trigger thumb Post-op findings: Thickening and synovitis left trigger thumb Procedure done: Left trigger thumb release Specimens removed/disposition: None Surgeon: Jenise Villafuerte MD White Kid Buffer: None Anesthesia: General (Per LMA, ASA 3) Estimated blood loss (mL): 2 Tourniquet time (min): 16 (At 250 mmHg) IV fluids (mL): 600 Urine output (mL): 0 (No Parmar) Complications: None Findings: Significant tenosynovitis and fluid around the flexor tendon of the thumb. Condition: stable Disposition: PACU (Then return to same-day surgery for discharge to home) Brief History: This 69-year-old gentleman presented to the office with left trigger thumb. He had pain particularly with extension at the IP joint. The triggering has been present for approximately 6 months. After discussion, the patient wished to proceed with operative intervention. Risks and complications were discussed with him. Consents were signed preoperatively in the office. Questions were answered. Procedure: Patient was brought to the operating theater. He was placed on the operating room table. General anesthetic per LMA, ASA 3 was administered uneventfully. The patient tolerated it well. He was also given Ancef 2 g uneventfully. The arm was exsanguinated, and tourniquet was elevated to 250 mmHg. Tourniquet time was 16 minutes. Surgical pause was performed prior to commencement of the surgical procedure. At the time of the surgical pause we identified the site and side of surgery. We also identified the patient's identity and appropriate administration of IV antibiotics. Following the surgical pause, an incision was made along the metacarpal phalangeal crease of the thumb. Dissection continued through the skin to the subcutaneous tissues using a scalpel. Blunt dissection was then utilized to spread soft tissues and allow access to the A1 farrah. It was then incised longitudinally and sharply using a knife. This was accomplished without difficulty and atraumatically. Once the A1 farrah was released, tendon as brought up out of the wound and evaluated. There were no gross masses on the tendon. Tendon was returned to normal position. We then irrigated the wound and subsequently closed it with 3-0 nylon with an interrupted mattress type suture. Following closure of the wound, the wound was injected with bupivacaine plain into the subcutaneous tissues as a local anesthetic. Sterile dressing was then placed consisting of Dermabond, OpSite, fluffed fluffs soft roll, and an Giovany wrap. The tourniquet was released at 16 minutes. The patient was returned to recovery in satisfactory condition. He will be discharged home to follow-up with me in the office. There were no complications and no specimens. Related Problem List Diagnoses (1) Trigger finger of left thumb:
--- NOTE | 2024-07-19 09:05 | ANE.PACU2 ---
Inpatient post-anesthesia follow up: Airway intact: Yes Vital signs: Temperature 98 F Pulse Rate 68 Respiratory Rate 17 Blood Pressure 128/82 Pulse Oximetry 97 Oxygen Delivery Me thod Room Air Oxygen Flow Rate 6 Fraction of Inspir ed Oxygen Hydration adequate: Yes Nausea and vomiting: No Pain level: 1 Mental status: Baseline
== END 2024-07-19 09:05 | disposition home or self-care (01) ==
PROVIDERS: PCP Nurse Practitioner; Visit Provider Specialist
PROC: (CPT 26055; principal; 2024-07-19 07:00)
DX: M65.312 Trigger thumb, left thumb (principal); S63.602A Unspecified sprain of left thumb, initial encounter; X58.XXXA Exposure to other specified factors, initial encounter; I10 Essential (primary) hypertension; J44.9 Chronic obstructive pulmonary disease, unspecified; F17.210 Nicotine dependence, cigarettes, uncomplicated
CPT/HCPCS: 26055; J0131; J0690; J1100; J2371; J2405; J2704; J3010; J3490; J7030

== ENCOUNTER → 2024-08-02 08:34 | Outpatient (BNVA) | payer OTHER, SELFPAY | PROVIDERS: PCP Nurse Practitioner; Visit Provider Internal Medicine | DX: I25.10 Atherosclerotic heart disease of native coronary artery without angina pectoris (principal); F17.200 Nicotine dependence, unspecified, uncomplicated; R06.02 Shortness of breath | CPT/HCPCS: 99213 ==

== ENCOUNTER → 2024-08-03 09:43 | Outpatient (BNVA) | payer OTHER, SELFPAY | PROVIDERS: PCP Nurse Practitioner; Visit Provider Nurse Practitioner | DX: Z98.890 Other specified postprocedural states (principal) | CPT/HCPCS: 99024 ==

== ENCOUNTER 2024-10-26 14:09 | Outpatient (CLI) | payer OTHER, SELFPAY ==
--- NOTE | 2024-10-26 14:12 | CT_ITS ---
WS: [id number] CT chest w con* [id number] HISTORY: COPD TECHNIQUE: Axial imaging performed through the thorax. Coronal and sagittal reformats are submitted. All CT scans at [facility] use at least one of these dose optimization techniques: automated exposure control; mA and/or kV adjustment per patient size (includes targeted exams where dose is mat ched to clinical indication); or iterative reconstruction. CONTRAST: Omnipaque 350; 100 mL IV. DLP: 606.28 mGy.cm COMPARISON: 12/11/2023 Lungs and central airway: Moderate pulmonary hyperexpansion. Predominantly reticular thickening in th e periphery of both lungs but greatest on the RIGHT. Similar to the prior examination without signifi cant progression. 2 mm nodule in the central reticulation RIGHT upper lobe. No new pulmonary mass or nodule. No pneumonia. Very small bleb with mild wall thickening superior segment RIGHT lower lobe. Pleura: Normal. No pleural effusion. Heart and pericardium: Normal size heart with no pericardial effusion. Mediastinum and patrizia: No mediastinum or hilar adenopathy. Vessels: Mild atherosclerosis aorta. Normal size pulmonary artery. Chest wall and lower neck: No soft tissue masses. Upper abdomen: No adrenal mass. Visualized liver and gallbladder are negative. Superior pole RIGHT re nal cyst 3.0 x 3.2 cm. Osseous structures: Mild thoracic spondylosis. CT/CT chest w con* [id number] IMPRESSION: 1. 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 N o new mass or pneumonia. 2. No mediastinal or hilar adenopathy. 3. RIGHT renal cyst, 3.0 x 3.2 cm.
== END 2024-10-26 14:10 | disposition home or self-care (01) ==
LOC: RAD 14:10
PROVIDERS: PCP Nurse Practitioner; Visit Provider Nurse Practitioner
DX: J44.9 Chronic obstructive pulmonary disease, unspecified (principal); N28.1 Cyst of kidney, acquired
CPT/HCPCS: 71260; Q9967

== ENCOUNTER → 2025-08-01 12:58 | Outpatient (BNVA) | payer OTHER, SELFPAY | PROVIDERS: PCP Nurse Practitioner; Visit Provider Internal Medicine | DX: I25.10 Atherosclerotic heart disease of native coronary artery without angina pectoris (principal); F17.210 Nicotine dependence, cigarettes, uncomplicated | CPT/HCPCS: 99213 ==

== ENCOUNTER 2025-10-26 08:14 | Outpatient (CLI) | payer OTHER, SELFPAY ==
--- NOTE | 2025-10-26 08:33 | CT_ITS ---
WS: [id number] LDCT LUNG CANCER SCREENING TECHNIQUE: Noncontrast CT of the chest with coronal and sagittal reformatted images. CLINICAL INFORMATION: SCREENING COMPARISON: CT scan of the chest with contrast 10/26/2024.. DLP: 136.21 mGy.cm DIvol: Mean CTDIvol: 2.90 (mGy) All CT scans at [facility] use at least one of these dose optimization techniques: automated exposure control; mA and/or kV adjustment per patient size (includes targeted exams where dose is matched to clinical indication); or iterative reconstruction. FINDINGS: Current examination is unchanged compared to the previous study. No mediastinal or hilar adenopathy or mass. Left coronary artery calcified plaque. Chronic subpleural reticular fibrotic changes. No lung nodule or lung mass. No acute pulmonary parenchymal or pleural abnormality. CT/CT lung screening [id number] IMPRESSION: Stable chest without acute abnormality. LUNG-RADS: 1-Negative FOLLOW UP: 12-month. Continue annual screening with LDCT
== END 2025-10-26 08:15 | disposition home or self-care (01) ==
LOC: RAD 08:16
PROVIDERS: PCP Nurse Practitioner; Visit Provider Nurse Practitioner
DX: Z12.2 Encounter for screening for malignant neoplasm of respiratory organs (principal); Z87.891 Personal history of nicotine dependence; I25.10 Atherosclerotic heart disease of native coronary artery without angina pectoris; J84.10 Pulmonary fibrosis, unspecified
CPT/HCPCS: 71271

== ENCOUNTER → 2025-11-01 14:32 | Outpatient (BNVA) | payer OTHER, SELFPAY | PROVIDERS: PCP Nurse Practitioner; Visit Provider Specialist | DX: M19.031 Primary osteoarthritis, right wrist (principal); M67.431 Ganglion, right wrist | CPT/HCPCS: 73110; 99204 ==